=== PATIENT | male | born 1965 | race American Indian/Alaskan Native ===

== ENCOUNTER 2018-05-09 19:10 | Emergency (ER) | payer BC ==
[2018-05-09 20:15] LABS: Mean Corpuscular HGB Conc 30 % (32-34); Mean Corpuscular Hemoglobin 28 pg (28-32); Mean Corpuscular Volume 93 fl (84-94); Platelet Count 208 K/mm3 (140-440)
[2018-05-09 20:16] LABS: Hematocrit 30.6 % (35.5-45.6); Hemoglobin 9.1 gm/dl (11.8-15.2); Red Cell Distribution Width 28.5 % (13.2-15.2)
[2018-05-09 20:49] LABS: BUN/Creatinine Ratio 10; Blood Urea Nitrogen 10 mg/dL (9-20); Calcium 8.7 mg/dL (8.4-10.2); Hemolysis Index 36
[2018-05-09 21:02] LABS: Anisocytosis 2+; Basophils % (Manual) 0 % (0.0-1.8); RBC Morphology Normal; Total Cells Counted 100
[2018-05-09 21:30] LABS: Bilirubin,Urine NEG (Negative); Blood,Urine NEG (Negative); Color,Urine Yellow (Yellow); Mucus,Urine FEW /HPF; Protein,Urine <15 mg/dL mg/dL (Negative); Urobilinogen,Urine < 2.0 mg/dL (<2.0); WBC,Urine < 1.0 /HPF (0.0-6.0)
[2018-05-09] MEDS ORDERED: LIDOCAINE VISCOUS 2% PO ONE (21:38)
[2018-05-09] MEDS ORDERED: ALUM-MAG HYDROX-SIMETH 200-200-20MG/5ML PO ONE (21:38)
--- NOTE | 2018-05-09 22:43 | Cat Scan Report ---
FINAL REPORT EXAM: CT ABDOMEN PELVIS W CON HISTORY: left sided abd pain TECHNIQUE: CT abdomen and pelvis with intravenous contrast PRIORS: None. FINDINGS: No acute abnormality identified in the lung bases. No focal abnormality identified within the liver parenchyma. The spleen demonstrates normal size and attenuation. No pancreatic abnormalities seen. The kidneys demonstrate symmetric contrast enhancement. No evidence of hydronephrosis. Noted is a 1.3 centimeter lower pole right renal cyst. The adrenal glands are unremarkable Abdominal aorta is normal in caliber. No pathologically enlarged lymph nodes are identified. No signs of free fluid or free air No evidence of small bowel dilatation. Colon is nondistended. No pericolonic inflammatory change. The appendix is identified and is unremarkable. Urinary bladder is unremarkable. IMPRESSION: Right renal cyst noted No acute abnormality identified
[2018-05-09 23:16] VITALS: BP 100/61
--- NOTE | 2018-05-10 00:06 | Emergency Department Report ---
- General Chief complaint: Weakness Stated complaint: WEAKNESS Time Seen by Provider: 05/09/18 21:08 Source: patient Mode of arrival: Ambulatory Limitations: No Limitations - History of Present Illness Initial comments: For the past 6 months to a year, patient has been dealing with a chronic anemia. They do not know why his blood level is low. A couple weeks ago, he required a blood transfusion and has been on iron supplements/infusions ever since. Over the past 2-3 weeks, he has developed upper abdominal pain that is constant. Not made worse by eating/urination/defecation. Today, he had nausea and vomiting with it. So, he came to the ER for evaluation. Patient states that a week ago, he took a laxative to help clear out his bowels. He has no history of constipation. Of note, over the past 2 weeks, he has had a 15 pound weight loss. Patient states that he normally weighs himself every day. His father had lung cancer with extensive smoking history. No other significant cancer history. Patient has follow-up with his workers compensation coordinator in 3 days for reevaluation. - Related Data Previous Rx's Medication Instructions Recorded Last Taken Type Ondansetron [Zofran Odt] 4 mg PO Q6HR PRN #12 tab.rapdis 05/10/18 Unknown Rx Sucralfate [Carafate] 1 gm PO Q6HR PRN #1 bottle 05/10/18 Unknown Rx Allergies Allergy/AdvReac Type Severity Reaction Status Date / Time No Known Allergies Allergy Unverified 05/09/18 19:51 ED Review of Systems ROS: Stated complaint: WEAKNESS Other details as noted in HPI Comment: All other systems reviewed and negative Constitutional: malaise, weakness (generalized) Endocrine: unexplained weight loss Gastrointestinal: abdominal pain, nausea ED Past Medical Hx - Past Medical History Previous Medical History?: No - Surgical History Past Surgical History?: No - Social History Smoking Status: Never Smoker Substance Use Type: None - Medications Home Medications: Home Medications Medication Instructions Recorded Confirmed Last Taken Type Ondansetron [Zofran Odt] 4 mg PO Q6HR PRN #12 tab.rapdis 05/10/18 Unknown Rx Sucralfate [Carafate] 1 gm PO Q6HR PRN #1 bottle 05/10/18 Unknown Rx ED Physical Exam - General Limitations: No Limitations General appearance: alert, in no apparent distress - Head Head exam: Present: atraumatic, normocephalic - Eye Eye exam: Present: normal appearance - ENT ENT exam: Present: mucous membranes moist - Neck Neck exam: Present: normal inspection - Respiratory Respiratory exam: Present: normal lung sounds bilaterally. Absent: respiratory distress - Cardiovascular Cardiovascular Exam: Present: regular rate, normal rhythm. Absent: systolic murmur, diastolic murmur, rubs, gallop - GI/Abdominal GI/Abdominal exam: Present: soft, normal bowel sounds - Rectal Rectal exam: Present: deferred - Extremities Exam Extremities exam: Present: normal inspection - Back Exam Back exam: Present: normal inspection - Neurological Exam Neurological exam: Present: alert, oriented X3 - Psychiatric Psychiatric exam: Present: normal affect, normal mood - Skin Skin exam: Present: warm, dry, intact, normal color. Absent: rash ED Course Vital Signs 05/09/18 05/09/18 05/09/18 19:52 20:34 20:40 Temperature 98 F Pulse Rate 87 81 Respiratory 18 15 20 Rate Blood Pressure 113/75 O2 Sat by Pulse 100 Oximetry 05/09/18 05/09/18 05/09/18 20:45 21:00 21:15 Temperature Pulse Rate 75 73 80 Respiratory 20 21 21 Rate Blood Pressure 109/66 110/65 112/68 O2 Sat by Pulse 100 100 99 Oximetry 05/09/18 05/09/18 05/09/18 21:30 22:25 22:30 Temperature Pulse Rate 86 76 74 Respiratory 22 16 11 L Rate Blood Pressure 109/64 112/68 106/66 O2 Sat by Pulse 100 100 100 Oximetry 05/09/18 05/09/18 22:45 23:00 Temperature Pulse Rate 74 74 Respiratory 18 19 Rate Blood Pressure 110/68 100/61 O2 Sat by Pulse 100 100 Oximetry ED Medical Decision Making - Lab Data Result diagrams: 05/09/18 20:02 05/09/18 20:02 - Medical Decision Making 53-year-old male with no significant past medical history that presents to the ER with abdominal pain and weight loss. Vital signs are stable at presentation. Lab work shows chronic anemia, which is stable. Bedside guaiac was positive with brown school. There is scant stool in the rectal vault. Patient was given a GI cocktail which resolved his symptoms. Due to history of weight loss, chronic anemia, and bloody stools, I ordered a CT abdomen and pelvis. On the scan, it showed concerns for possible food bolus versus mass in the small intestine. Patient has follow-up with his workers compensation coordinator in 3 days. The patient be started on Pepcid and told to follow-up with his GI doctor for further evaluation of this possible intestinal mass. - Differential Diagnosis malignancy, GI bleed, electrolyte abnormality, appendicitis Critical care attestation.: If time is entered above; I have spent that time in minutes in the direct care of this critically ill patient, excluding procedure time. ED Disposition Clinical Impression: Gastritis, Mass of small intestine Disposition: TO HOME OR SELFCARE Is pt being admited?: No Condition: Stable Instructions: Gastritis (ED), Diet for Ulcers and Gastritis (ED) Additional Instructions: You have a possible mass in your small intestine seen on CT scan today. Your stool was faintly positive for blood. Talk with your workers compensation coordinator about further work up of the possible mass/malignancy. If anything concerns you, please return to the ER for re-evaluation. Start taking a daily 20 mg pepcid for your gastritis. This can be purchased [id number]. Prescriptions: Ondansetron [Zofran Odt] 4 mg PO Q6HR PRN #12 tab.rapdis PRN Reason: Nausea Sucralfate [Carafate] 1 gm PO Q6HR PRN #1 bottle PRN Reason: stomach pain Referrals: NEIL SERVIN MD [Primary Care Provider] - 3-5 Days
== END 2018-05-10 00:13 | disposition home or self-care (01) ==
LOC: ED 19:10
DX: K29.70 Gastritis, unspecified, without bleeding (principal); K63.89 Other specified diseases of intestine
CPT/HCPCS: 36415; 74177; 80048; 81001; 85007; 85025; 93005; 93010; 99284; Q9967